=== PATIENT | female | born 1950 | race Caucasian/White ===

== ENCOUNTER 2019-01-31 22:36 | Emergency (ER) | payer OTHER ==
[2019-01-31] MEDS ORDERED: PHENAZOPYRIDINE HCL 100 MG TABLET (FP) ONE (22:46)
[2019-01-31] MEDS ORDERED: PHENAZOPYRIDINE HCL 100 MG TABLET (FP) PO ONE (22:48)
[2019-01-31] MEDS ORDERED: NITROFURANTOIN MACROCRYSTAL 50 MG CAPSULE (FP) ONE (22:53)
--- NOTE | 2019-01-31 22:55 | PDOC ---
Documentation entered by Chen Jasmine SCRIBE, acting as scribe for Don Hernandez MD. Don Hernandez MD: This documentation has been prepared by the travisibe, Chen Jasmine SCRIBE, under my direction and personally reviewed by me in its entirety. I confirm that the documentation accurately reflects all work , treatment, procedures, and medical decision making performed by me. History of Present Illness - General Chief Complaint: Urinary Problem Stated Complaint: HEMATURIA/BURNING Time Seen by Provider: 01/31/19 22:39 History Source: Patient Exam Limitations: No Limitations - History of Present Illness Initial Comments: 01/31/19 22:43 The patient is a 68-year-old female who presents to the emergency department with dysuria, hematuria, and urinary frequency since 5:00 pm today. The patient reports taking Bactrim for the pain without relief. The patient reports prior hx of UTIs, however, reports none were this severe. Denies fever, chills, nausea , or vomiting. PAST MEDICAL HISTORY: hx of UTIs. PAST SURGICAL HISTORY: Left wrist repair (2010). FAMILY HISTORY: no pertinent history SOCIAL HISTORY: Pt lives with family. MEDICATIONS: reviewed ALLERGIES: As per nursing notes ROS: General: No fevers or chills, no weakness, no weight loss HEENT: No change in vision. No sore throat,. No ear pain CardioVascular: No chest pain or shortness of breath Respiratory:No cough, or wheezing. Gastrointestinal: no nausea, vomiting, diarrhea or constipation, No rectal bleeding Genitourinary: +dysuria, hematuria, and urinary frequency. Musculoskeletal: No joint or muscle pain or swelling Neurologic: No headache, vertigo, dizziness or loss of consciousness Psychiatric: nor depression Skin: No rashes or easy bruising Endocrine: no increased thirst or abnormal weight change Allergic: no skin or latex allergy All other systems reviewed and normal PE: GENERAL: The patient is awake, alert, and fully oriented, in no acute distress. HEAD: Normal with no signs of trauma. EYES: Pupils equal, round and reactive to light, extraocular movements intact, sclera anicteric, conjunctiva clear. EXTREMITIES: Normal range of motion, no edema. BACK: No CVA tenderness or flank tenderness. NEUROLOGICAL: Normal speech, normal gait. PSYCH: Normal mood, normal affect. SKIN: Warm, Dry, normal turgor, no rashes or lesions noted. 01/31/19 22:51 Assessment and plan: This is a 68-year-old female who comes in complaining of frequency dysuria and hematuria. Urinalysis is sent. 01/31/19 22:53 Urinalysis is positive for leukocytes and nitrates. Patient will be treated for urinary tract infection with Macrobid and given Pyridium for the discomfort. Patient discharged home to follow-up with her primary care doctor. Past History - Past Medical History Allergies/Adverse Reactions: Allergies Allergy/AdvReac Type Severity Reaction Status Date / Time No Known Allergies Allergy Verified 11/22/11 12:40 Home Medications: Ambulatory Orders Cholecalciferol (Vitamin D3) [Vitamin D3] 1,000 unit PO DAILY tablet 06/15/16 Nitrofurantoin Monohyd/M-Cryst [Macrobid -] 100 mg PO BID #14 capsule 01/31/19 Phenazopyridine HCl [Pyridium] 200 mg PO TID #6 tablet 01/31/19 Anemia: No Asthma: No Cancer: No Cardiac Disorders: No CVA: No COPD: No CHF: No Dementia: No Diabetes: No GI Disorders: No Disorders: No HTN: Yes (DX 2003) Hypercholesterolemia: Yes (DIET CONTROLLED) Liver Disease: No Seizures: No Thyroid Disease: No - Surgical History Abdominal Surgery: No Appendectomy: No Cardiac Surgery: No Cholecystectomy: No Lung Surgery: No Neurologic Surgery: No Orthopedic Surgery: Yes (L WRIST REPAIR-2010) - Psycho Social/Smoking Cessation Hx Smoking History: Never smoked Have you smoked in the past 12 months: No Number of Cigarettes Smoked Daily: 10 Hx Alcohol Use: No Drug/Substance Use Hx: No Substance Use Type: None Hx Substance Use Treatment: No Discharge - Discharge Information Problems reviewed: Yes Clinical Impression/Diagnosis: Hemorrhagic cystitis Condition: Stable Disposition: HOME - Admission No - Additional Discharge Information Prescriptions: Nitrofurantoin Monohyd/M-Cryst [Macrobid -] 100 mg PO BID #14 capsule Phenazopyridine HCl [Pyridium] 200 mg PO TID #6 tablet - Follow up/Referral Referrals: Ja Howard [Primary Care Provider] - - Patient Discharge Instructions Additional Instructions: For the infection in your urine take Macrobid 1 tablet twice a day for 7 days. For the burning and frequency take Pyridium 1 tablet 3 times a day for 2 days. Return to the emergency department immediately with ANY new, persistent or worsening symptoms. Continue any medications as previously prescribed by your physician. You should follow up with your primary doctor as soon as possible regarding today's emergency department visit. . Please make sure your doctor reviews the results of your emergency evaluation. Thank you for coming to the Emergency Department today for your care. It was a pleasure to see you today. Please note that your evaluation is INCOMPLETE until you follow-up with your doctor. - Post Discharge Activity
[2019-01-31 22:57] VITALS: BP 142/80; PULSE 72; TEMP 97.9; BMI 26.3
[2019-01-31] MEDS ORDERED: NITROFURANTOIN MACROCRYSTAL 50 MG CAPSULE (FP) PO SCH (23:00)
== END 2019-01-31 23:00 | disposition home or self-care (01) ==
LOC: FER 22:36
DX: N83.10 Corpus luteum cyst of ovary, unspecified side (principal); E78.00 Pure hypercholesterolemia, unspecified; I10 Essential (primary) hypertension
CPT/HCPCS: 81003; 81015; 87086; 99282-25

== ENCOUNTER 2022-09-17 00:21 | Emergency (ER) | payer OTHER ==
[2022-09-17 00:31] VITALS: RESP 18; BMI 26.3
[2022-09-17] MEDS ORDERED: NITROFURANTOIN MACROCRYSTAL 50 MG CAPSULE (FP) ONE (00:51)
[2022-09-17 00:56] VITALS: BP 177/96; PULSE 88; TEMP 98.4
[2022-09-17] MEDS ORDERED: PHENAZOPYRIDINE HCL 100 MG TABLET (FP) PO ONE (00:58)
[2022-09-17] MEDS ORDERED: NITROFURANTOIN MACROCRYSTAL 50 MG CAPSULE (FP) PO SCH (01:00)
[2022-09-17] MEDS ORDERED: PHENAZOPYRIDINE HCL 100 MG TABLET (FP) ONE (01:01)
[2022-09-17 01:46] LABS: EPI CELLS 31 /uL (0-25.1); HYALINE CASTS 55 /uL (0-3.1); URINE APPEARANCE TURBID; URINE BILIRUBIN 2+ (NEGATIVE); URINE COLOR RED; URINE GLUCOSE (UA) NEGATIVE (NEGATIVE); URINE KETONE NEGATIVE (NEGATIVE); URINE LEUK ESTERASE 3+ (NEGATIVE); URINE NITRITE POSITIVE (NEGATIVE); URINE PROTEIN 3+ (NEGATIVE); URINE UROBILINOGEN 0.2 mg/dL (0.2-1.0); URINE WBC 470 /uL (0-25.8)
[2022-09-17 03:50] LABS: URINE BACTERIA 1.9 /uL (0-1359); URINE RBC 47733.7 /uL (0-23.9); YEAST NOE SEEN (NEGATIVE)
== END 2022-09-17 01:08 | disposition home or self-care (01) ==
LOC: FER 00:21
DX: N30.91 Cystitis, unspecified with hematuria (principal); R39.15 Urgency of urination; R35.0 Frequency of micturition; R10.30 Lower abdominal pain, unspecified
CPT/HCPCS: 81003; 87086; 99283-25